=== PATIENT | male | born 1970 | race Caucasian/White ===

== ENCOUNTER 2016-11-11 01:33 | Observation (INO) | payer BC ==
[2016-11-11] MEDS ORDERED: NITRO-BID 2% UD PACKETS TOP ONE (01:41)
[2016-11-11] MEDS ORDERED: BABY ASPIRIN 81 MG CHEW PO ONE (01:41)
[2016-11-11] MEDS ORDERED: Pepcid 20 MG VIAL IV ONE ×2 (01:41→01:49)
[2016-11-11] MEDS ORDERED: Sodium Chloride 0.9% 1000 ML 1,000 ML IV SCH ×2 (01:45→07:15)
--- NOTE | 2016-11-11 01:46 | ERPHSYRPT ---
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 He has no hx of heart disease. He noted some aching in left arm and then chest around 9PM. Got better. He then awoke in night with chest pain to shoulder blade pain, sharp but aching in nature, moderate. Came to ER. Has had some recent HILL. No hx of lung disease. Some sweating and felt hot earlier tonite. No cough. Timing/Duration: today Chest Pain Radiation: arm, back (shoulder blade) Severity of Pain-Max: moderate Severity of Pain-Current: moderate Modifying Factors: Worsens With: antacids Prior Chest Pain/Cardiac Workup: no prior chest pain, no prior cardiac workup Nitro Today/Relief: no nitro taken today Aspirin Treatment Today: 81 mg x 4, provided by ED Allergies/Adverse Reactions: benzocaine [From Chloraseptic Sore Throat] Allergy (Verified 11/11/16 01:53) menthol [From Chloraseptic Sore Throat] Allergy (Verified 11/11/16 01:53) Home Medications: Famotidine [Pepcid] 20 mg PO DAILY 11/11/16 [History] - Review of Systems Constitutional: No Fever Eyes: No Symptoms Ears, Nose, & Throat: No Symptoms Respiratory: Dyspnea on Exertion (HILL), No Cough Cardiac: Chest Pain, No Edema, No Palpitations, No Syncope Abdominal/Gastrointestinal: No Abdominal Pain, No Nausea, No Vomiting Genitourinary Symptoms: No Symptoms Musculoskeletal: No Symptoms Skin: No Rash Neurological: No Focal Weakness, No Headache, No Parasthesia All Other Systems: Reviewed and Negative - Past Medical History Pertinent Past Medical History: No - Social History Smoking Status: Never smoker Patient Lives Alone: No Significant Family History: heart disease (both grandfathers age 40's) - Physical Exam General Appearance: alert, other (pleasant, calm, interactive man) Eye Exam: PERRL/EOMI Ears, Nose, Throat Exam: normal ENT inspection, moist mucous membranes Neck Exam: normal inspection, non-tender, supple Respiratory Exam: normal breath sounds, lungs clear, No respiratory distress Cardiovascular Exam: regular rate/rhythm, murmur, other (2+ femoral pulses), No friction rub, No pulse deficit Gastrointestinal/Abdomen Exam: soft, No tenderness, No distention, No mass, No guarding Back Exam: normal inspection Extremity Exam: normal inspection, normal range of motion Neurologic Exam: alert, oriented x 3, cooperative, ball holder II-XII nml as tested, nml station & gait, sensation nml, No motor deficits Skin Exam: normal color, warm, dry, No rash - Course Nursing assessment & vital signs reviewed: Yes EKG Interpreted by Me: RATE (62), Sinus Gio, NORMAL AXIS, Right Bundle Branch Block, Other (no old tracing available for comparison) - Radiology Exams cxr-1 X-ray Interpretation: Reviewed by me (CM, widened mediastinum, congestion with low lung volumes) cxr-2 X-ray Interpretation: Reviewed by me (improved aeration and inspiration, normal appearing mediastinum, mild hilar fullness bilateral) Ordered Tests: Active Orders 24 hr Category Date Time Status Web Page Developer STAT Care 11/11/16 01:41 Active EKG-ER Only STAT Care 11/11/16 01:41 Completed IV Insertion STAT Care 11/11/16 01:41 Active Pulse Oximetry (ED) STAT Care 11/11/16 01:41 Active CHEST 1 VIEW (PORTABLE) Stat Exams 11/11/16 01:41 Taken CHEST 2 VIEWS (PA AND LAT) Stat Exams 11/11/16 02:09 Taken CBC W DIFF Stat Lab 11/11/16 01:48 Completed CMP Stat Lab 11/11/16 01:48 Completed NT PRO BNP Stat Lab 11/11/16 01:48 Completed PROTIME WITH INR Stat Lab 11/11/16 01:48 Completed PTT Stat Lab 11/11/16 01:48 Completed TROPONIN Q3H Lab 11/11/16 01:51 Completed TROPONIN Q3H Lab 11/11/16 04:45 Ordered TROPONIN Q3H Lab 11/11/16 07:45 Ordered TROPONIN Q3H Lab 11/11/16 10:45 Ordered TROPONIN Q3H Lab 11/11/16 13:45 Ordered Medication Summary Generic Name Dose Route Start Last Admin Trade Name Freq PRN Reason Stop Dose Admin Sodium Chloride 1,000 mls @ 100 mls/hr 11/11/16 01:45 11/11/16 01:56 Sodium Chloride 0.9% 1000 Ml IV 12/11/16 01:44 100 mls/hr .Q10H BUBBA Administration Discontinued Medications Generic Name Dose Route Start Last Admin Trade Name Kobe PRN Reason Stop Dose Admin Aspirin 324 mg 11/11/16 01:41 11/11/16 01:56 Baby Aspirin 81 Mg Chew PO 11/11/16 01:42 324 mg STAT ONE Administration Aspirin Confirm 11/11/16 01:49 Baby Aspirin 81 Mg Chew Administered 11/11/16 01:50 Dose 324 mg .ROUTE .STK-MED ONE Famotidine 20 mg 11/11/16 01:41 11/11/16 01:56 Pepcid 20 Mg Vial IV 11/11/16 01:42 20 mg STAT ONE Administration Famotidine Confirm 11/11/16 01:49 Pepcid 20 Mg Vial Administered 11/11/16 01:50 Dose 20 mg IV .STK-MED ONE Sodium Chloride Confirm 11/11/16 01:49 Sodium Chloride 0.9% 1000 Ml Administered 11/11/16 01:50 Dose 1,000 mls @ ud .ROUTE .STK-MED ONE Nitroglycerin 1 gm 11/11/16 01:41 11/11/16 01:58 Nitro-Bid 2% Ud Packets TOP 11/11/16 01:42 1 gm STAT ONE Administration Nitroglycerin Confirm 11/11/16 01:49 Nitro-Bid 2% Ud Packets Administered 11/11/16 01:50 Dose 1 gm .ROUTE .STK-MED ONE Lab/Rad Data: Laboratory Result Diagrams 11/11/16 01:48 11/11/16 01:48 Laboratory Results 11/11/16 11/11/16 11/11/16 Range/Units 01:51 01:48 01:48 WBC (4.0-10.5) K/mm3 RBC (4.1-5.6) M/mm3 Hgb (12.5-18.0) gm/dl Hct (42-50) % MCV (78-100) fl MCH (26-32) pg MCHC (32-36) g/dl RDW (11.5-14.0) % Plt Count (150-450) K/mm3 MPV (6-9.5) fl Gran % (36.0-66.0) % Lymphocytes % (24.0-44.0) % Monocytes % (0.0-12.0) % Eosinophils % (0.00-5.0) % Basophils % (0.0-0.4) % Basophils # (0-0.4) INR 1.00 (0.8-3.0) PTT 32.9 (24.1-36.1) SECONDS Sodium (136-145) mEq/L Potassium (3.5-5.1) mEq/L Chloride (98-107) mEq/L Carbon Dioxide (21-32) mEq/L Anion Gap (5-15) MEQ/L BUN (9-20) mg/dL Creatinine (0.55-1.30) mg/dl Estimated GFR ML/MIN Glucose (70-110) MG/DL Calcium (8.5-10.1) mg/dL Total Bilirubin (0.2-1.0) mg/dL AST (15-37) U/L ALT (12-78) U/L Alkaline Phosphatase (46-116) U/L Troponin I < 0.017 (0.000-0.056) ng/ml NT-Pro-B Natriuret Pep WH[employer]ESALE [employer]ESSOR Serum Total Protein (6.4-8.2) gm/dL Albumin (3.4-5.0) g/dL 11/11/16 11/11/16 Range/Units 01:48 01:48 WBC 8.8 (4.0-10.5) K/mm3 RBC 5.53 (4.1-5.6) M/mm3 Hgb 16.3 (12.5-18.0) gm/dl Hct 47.7 (42-50) % MCV 86.3 (78-100) fl MCH 29.5 (26-32) pg MCHC 34.2 (32-36) g/dl RDW 13.9 (11.5-14.0) % Plt Count 175 (150-450) K/mm3 MPV 12.3 H (6-9.5) fl Gran % 54.3 (36.0-66.0) % Lymphocytes % 32.5 (24.0-44.0) % Monocytes % 10.3 (0.0-12.0) % Eosinophils % 2.7 (0.00-5.0) % Basophils % 0.2 (0.0-0.4) % Basophils # 0.02 (0-0.4) INR (0.8-3.0) PTT (24.1-36.1) SECONDS Sodium 145 (136-145) mEq/L Potassium 3.8 (3.5-5.1) mEq/L Chloride 108 H (98-107) mEq/L Carbon Dioxide 24.7 (21-32) mEq/L Anion Gap 16.4 H (5-15) MEQ/L BUN 22 H (9-20) mg/dL Creatinine 1.41 H (0.55-1.30) mg/dl Estimated GFR 58 ML/MIN Glucose 108 (70-110) MG/DL Calcium 8.7 (8.5-10.1) mg/dL Total Bilirubin 0.7 (0.2-1.0) mg/dL AST 25 (15-37) U/L ALT 65 (12-78) U/L Alkaline Phosphatase 82 (46-116) U/L Troponin I (0.000-0.056) ng/ml NT-Pro-B Natriuret Pep Serum Total Protein 7.1 (6.4-8.2) gm/dL Albumin 4.1 (3.4-5.0) g/dL - Progress Progress Note: 11/11/16 01:46 No local doctor as he is from [place] staying here with inlaws. Will proceed with cardiac workup and treatment as symptoms are possible ACS. 11/11/16 02:25 Dao improved with NTG paste. Still a little hypertensive. 11/11/16 02:50 Pt had a pain in left ear, denominational, and out left elbow. Feels overall better. If he needs cream dumper he [place]. He agrees for chest pain observation here for serial troponins. CAlled Dr Celeste Stevens (oc) for tele obs. Counseled pt/family regarding: lab results, diagnosis, need for follow-up, rad results - Departure Time of Disposition: 02:51 Departure Disposition: Observation Clinical Impression: Chest pain, rule out acute myocardial infarction Condition: Fair Critical Care Time: No
[2016-11-11] MEDS ORDERED: NITRO-BID 2% UD PACKETS ONE (01:49)
[2016-11-11] MEDS ORDERED: Sodium Chloride 0.9% 1000 ML 1,000 ML ONE ×2 (01:49→05:34)
[2016-11-11] MEDS ORDERED: BABY ASPIRIN 81 MG CHEW ONE (01:49)
[2016-11-11 01:54] LABS: BASOPHIL % 0.2 % (0.0-0.4); Eosinophil % 2.7 % (0.00-5.0); Granulocytes % 54.3 % (36.0-66.0); Lymphocytes % 32.5 % (24.0-44.0); Mean Cell Volume 86.3 fl (78-100); Mean Corpuscular Hemoglobin 29.5 pg (26-32); Mean Platelet Volume 12.3 fl (6-9.5); Monocytes % 10.3 % (0.0-12.0); Platelet Count 175 K/mm3 (150-450); Red Blood Count 5.53 M/mm3 (4.1-5.6); Red Cell Distribution Width 13.9 % (11.5-14.0); White Blood Count 8.8 K/mm3 (4.0-10.5)
[2016-11-11 02:01] LABS: PROTIME 11.2 SECONDS (8.83-12.87)
[2016-11-11 02:04] LABS: PTT 32.9 SECONDS (24.1-36.1)
[2016-11-11 02:11] LABS: ALBUMIN 4.1 g/dL (3.4-5.0); ANION GAP 16.4 MEQ/L (5-15); BILIRUBIN,TOTAL 0.7 mg/dL (0.2-1.0); Carbon Dioxide 24.7 mEq/L (21-32); Potassium 3.8 mEq/L (3.5-5.1); Total Protein 7.1 gm/dL (6.4-8.2)
[2016-11-11] MEDS ORDERED: SUBLIMAZE 100 MCG/2 ML IV ONE (02:49)
[2016-11-11] MEDS ORDERED: ATARAX 25 MG PO ONE (02:49)
[2016-11-11] MEDS ORDERED: SUBLIMAZE 100 MCG/2 ML ONE (02:54)
[2016-11-11] MEDS ORDERED: ATARAX 25 MG ONE (02:55)
[2016-11-11] MEDS ORDERED: Zofran 4 MG/2 ML VIAL IV PRN (03:27)
[2016-11-11] MEDS ORDERED: MAALOX ES 30 ML UNIT DOSE PO PRN (03:27)
[2016-11-11] MEDS ORDERED: MILK OF MAGNESIA 30 ML PO PRN (03:27)
[2016-11-11] MEDS ORDERED: Senokot-S Tablet PO PRN (03:27)
[2016-11-11] MEDS ORDERED: TYLENOL 325 MG PO PRN (03:27)
[2016-11-11] MEDS ORDERED: Keppra 500 MG/5 ML*** 500 MG in D5w 100ML Mini Bag 100 ML 100 ML IV ONE (05:09)
[2016-11-11] MEDS ORDERED: Keppra 500 MG/5 ML ONE (05:13)
[2016-11-11] MEDS ORDERED: D5w 100ML Mini Bag 100 ML 100 ML IV ONE (05:13)
[2016-11-11] MEDS ORDERED: NITRO-BID 2% UD PACKETS TOP SCH (06:00)
[2016-11-11 06:05] VITALS: BP 122/87; PULSE 74; O2SAT 99
--- NOTE | 2016-11-11 06:25 | PCM.HP ---
History of Present Illness - Chief Complaint Chief Complaint: angina, syncope Date: 11/11/16 History of Present Illness: is a 46 year old male. with no local doctor from the [place] area with no significant medical history who was visiting in laws and was heading out to dinner at 5 pm when he started developing chest pain / numbness in the left arm radiating in the left neck and into the chest it would come and go he went to dinner and then the pain woke him up again early this am so he came to the ED to check it out. He was evaluated in the ED with nonspecific ST changes RBBB on EKG negative troponin. He was transferred to ICU for observation where his chest pain was improved after nitro. He was having a blood draw done and about 1 minute after that he developed an arrhythmia and had a 30 second pause with syncope and posturing. Rapid response was called and Dr. Jean Baptiste responded. He then had a second pause that was not quite as long with an IV draw. He has never had syncope in the past no history of seizures. No history of vagal attacks. After this he was having sinus arrhythmia versus second degree av block and then short periods of arrhythmia and then a period of atrial fibrillation. - Review of Systems Constitutional: No Fever, No Chills Eyes: No Symptoms Ears, Nose, & Throat: No Symptoms Respiratory: No Cough, No Short Of Breath Cardiac: Chest Pain, Syncope, No Edema Abdominal/Gastrointestinal: No Abdominal Pain, No Nausea, No Vomiting, No Diarrhea Genitourinary Symptoms: No Dysuria Musculoskeletal: No Back Pain, No Neck Pain Skin: No Rash Neurological: No Dizziness, No Focal Weakness, No Sensory Changes Psychological: No Symptoms Endocrine: No Symptoms Hematologic/Lymphatic: No Symptoms Immunological/Allergic: No Symptoms Medications & Allergies Home Medications: Home Medication List Famotidine [Pepcid] 20 mg PO DAILY 11/11/16 [History Confirmed 11/11/16] Fexofenadine HCl [Blanca] 180 mg PO DAILY 11/11/16 [History Confirmed 11/11/16] Fluticasone/Salmeterol 230/21 [Advair Hfa 230/21 Mcg COMMON CANISTER*] 2 puff IH BIDRT 11/11/16 [History Confirmed 11/11/16] Allergies/Adverse Reactions: Allergies Allergy/AdvReac Type Severity Reaction Status Date / Time benzocaine Allergy Verified 03/07/17 01:53 [From Chloraseptic Sore Throat] menthol Allergy Verified 11/11/16 01:53 [From Chloraseptic Sore Throat] - Past Medical History Past Medical History: No Neurological History: No Pertinent History ENT History: No Pertinent History Cardiac History: No Pertinent History Respiratory History: Asthma, Other Endocrine Medical History: No Pertinent History Musculoskelatal History: No Pertinent History GI Medical History: GERD History: No Pertinent History Pyscho-Social History: No Pertinent History Male Reproductive Disorders: No Pertinent History Comment: reactive airway disease - Past Surgical History Past Surgical History: Yes Neuro Surgical History: No Pertinent History Cardiac History: No Pertinent History Respiratory Surgery: No Pertinent History GI Surgical History: No Pertinent History Genitourinary Surgical Hx: No Pertinent History Musculskeletal Surgical Hx: No Pertinent History Male Surgical History: No Pertinent History - Social History Smoking Status: Never smoker Exposure to second hand smoke: No Alcohol: Occasionally Drug Use: none Significant Family History: heart disease (both grandfathers age 40's) - Physical Exam Vital Signs: Vital Signs - 24 hr Temp Pulse Pulse Resp BP Pulse Ox 11/11/16 05:43 74 17 122/87 99 11/11/16 05:35 63 16 109/78 100 11/11/16 05:30 93 H 15 116/86 97 11/11/16 05:25 78 16 125/82 98 11/11/16 04:53 60 13 115/75 96 11/11/16 04:00 57 L 11/11/16 03:39 98.1 F 57 L 16 148/87 95 11/11/16 03:00 62 14 133/94 94 L 11/11/16 02:28 66 14 144/95 94 L 11/11/16 02:10 62 16 145/108 95 11/11/16 01:59 94 L 11/11/16 01:51 72 11/11/16 01:49 99 F 68 16 156/112 96 Oxygen-Last 24 hours O2 Percentage 100% O2 Percentage 100% O2 Percentage 100% O2 Percentage 100% O2 Percentage 2 Liters = 28% General Appearance: no apparent distress, alert Neurologic Exam: alert, oriented x 3, cooperative, normal mood/affect, nml cerebellar function, nml station & gait, sensation nml, No motor deficits Eye Exam: PERRL/EOMI, eyes nml inspection Ears, Nose, Throat Exam: normal ENT inspection, TMs normal, pharynx normal, moist mucous membranes Neck Exam: normal inspection, non-tender, supple, full range of motion Respiratory Exam: normal breath sounds, lungs clear, No respiratory distress Cardiovascular Exam: regular rate/rhythm, normal heart sounds, normal peripheral pulses Gastrointestinal/Abdomen Exam: soft, normal bowel sounds, No tenderness, No mass Back Exam: normal inspection, normal range of motion, No CVA tenderness, No vertebral tenderness Extremity Exam: normal inspection, normal range of motion, pelvis stable Skin Exam: normal color, warm, dry, No rash Lymphatic Exam: No adenopathy Results - Labs Lab/Micro Results: Lab Results-Last 24 Hours 11/11/16 11/11/16 Range/Units 05:04 05:04 Troponin I < 0.017 (0.000-0.056) ng/ml Triglycerides 141 (30-200) mg/dL Cholesterol 183 (100-200) mg/dL LDL Cholesterol 128 H (5-99) mg/dL HDL Cholesterol 35 (35-60) mg/dL Heart Disease Risk Ratio 5.2 - Other Procedures and Tests Respiratory Therapy 11/11/16 07:00 Respiratory MDI BID 11/11/16 09:37 EKG ROUTINE Assessment/Plan (1) Arrhythmia Current Visit: Yes Status: Acute Assessment & Plan: the long sinus pause after what appeared to be a type 2 Mobits Type II block and then after the sinus has had a period of intermittent afib/flutter he is asymptomatic at this time with stable vital signs his second troponin was negative Dr. Jean Baptiste has made arrangements with Cardiology Dr. Campbell for transfer to [place] ICU for further evaluation and treatment of his arrhythmia. he has received aspirin and nitro on arrival. Code(s): I49.9 - CARDIAC ARRHYTHMIA, UNSPECIFIED (2) Syncope Current Visit: Yes Status: Acute Code(s): R55 - SYNCOPE AND COLLAPSE (3) Chest pain, rule out acute myocardial infarction Current Visit: Yes Status: Acute Code(s): R07.9 - CHEST PAIN, UNSPECIFIED
[2016-11-11] MEDS ORDERED: Advair Hfa 115/21 Common canister IH SCH (07:00)
--- NOTE | 2016-11-11 08:56 | XRAY ---
Indication: Chest pain. Comparison: None Portable chest markedly underinflated accentuating the cardiopulmonary structures. Bibasilar opacities either infiltrates versus atelectasis. Upper lungs clear. Heart is not enlarged for AP portable technique. Bony thorax intact. Impression: Underinflated chest with bibasilar infiltrates/atelectasis. Correlate clinically.
--- NOTE | 2016-11-11 08:58 | XRAY ---
Indication: Chest pain. Comparison: Taken earlier in the day. PA/lateral chest better inflated without infiltrate, consolidation, or large effusion. Tiny left base calcified granuloma. Heart and mediastinal structures within normal limits. Impression: Nonacute chest.
[2016-11-11] MEDS ORDERED: Ecotrin 325 MG PO SCH (10:00)
[2016-11-11] MEDS ORDERED: Pepcid 20 MG PO SCH (10:00)
== END 2016-11-11 07:00 | disposition home or self-care (01) ==
LOC: ED 01:33 → ICU 03:16
PROVIDERS: ADMIT Family Medicine; ATTEND Family Medicine
DX: I49.9 Cardiac arrhythmia, unspecified (principal); R55 Syncope and collapse; R07.9 Chest pain, unspecified; I49.5 Sick sinus syndrome; J45.909 Unspecified asthma, uncomplicated; K21.9 Gastro-esophageal reflux disease without esophagitis; Z79.899 Other long term (current) drug therapy
CPT/HCPCS: 36000; 36415; 71010; 71020; 80053; 80061; 82962; 83721; 83880; 84484; 85025; 85610; 85730; 93005; 93041; 93268; 96360; 96374; 96375; 99285; G0378; J1953; J3010